=== PATIENT | female | born 1995 | race Caucasian/White ===

== ENCOUNTER → 2018-10-07 | Outpatient (CLI) | payer OTHER ==
[2016-01-05 13:36] VITALS: BMI 25.1
[~2018-10-07] MED LIST: ALBU8.5H IH; ERYT-80 PO; IPRA3AMP36 IH; KET10 PO; LANS30CA70 PO; LOR5/325 PO; OSEL30CA2 PO; VALA500T66 PO
== END ==
LOC: LAB 15:50
DX: Z79.899 Other long term (current) drug therapy (principal)
CPT/HCPCS: 36415; 84132